=== PATIENT | male | born 1945 | race Hispanic/Latino ===

== ENCOUNTER 2018-06-26 02:50 | Observation (INO) | payer MEDICARE ==
[~2018-06-26] VITALS: Ht 167.6 cm; Wt 97.9 kg
[2018-06-26 03:28] LABS: BASOPHILS % (AUTO) 0.3 % (0.0-5.0); EOSINOPHILS % (AUTO) 1.9 % (0.0-8.0); HEMATOCRIT 37.4 % (42-54); LYMPHOCYTES % (AUTO) 37.2 % (21.0-51.0); MEAN CORPUSCULAR HEMOGLOBIN 31.8 pg (27.0-33.0); MEAN CORPUSCULAR HGB CONC 34.5 g/dL (32.0-36.0); MEAN CORPUSCULAR VOLUME 92.1 fL (79-99); MONOCYTES % (AUTO) 9.2 % (3.0-13.0); NEUTROPHILS % (AUTO) 51.4 % (40.0-77.0); NUCLEATED RED BLOOD CELLS 0.1 % (0.0-0.19); PLATELET COUNT (AUTO) 126 K/uL (130-400); RED BLOOD CELL COUNT(AUTO) 4.06 MIL/uL (4.50-6.20); RED CELL DISTRIBUTION WIDTH 13.1 % (11.0-15.5)
[2018-06-26 03:32] LABS: INR 1.08 (0.85-1.15); PARTIAL THROMBOPLASTIN TIME 29.6 SEC (26.3-35.5); PROTHROMBIN TIME 11.3 SEC (9.6-11.6)
[2018-06-26 03:43] LABS: ALBUMIN 3.3 g/dL (3.5-5.0); BILIRUBIN,TOTAL 0.4 mg/dL (0.2-1.0); CREATININE 0.7 mg/dL (0.5-1.5); POTASSIUM 3.5 mmol/L (3.5-5.1); TOTAL PROTEIN, SERUM 6.8 g/dL (6.0-8.3)
[2018-06-26 04:39] LABS: APPEARANCE,URINE Clear (CLEAR); BILIRUBIN,URINE Negative (NEGATIVE); COLOR,URINE Yellow (YELLOW); GLUCOSE, URINE (UA) Negative (NEGATIVE); KETONES,URINE Trace mg/dL (NEGATIVE); LEUKOCYTE ESTERASE ,URINE Negative (NEGATIVE); NITRATE,URINE Negative (NEGATIVE); OCCULT BLOOD,URINE Trace (NEGATIVE); PH,URINE 6.5 (5.0-8.0); PROTEIN,URINE Negative (NEGATIVE); UROBILINOGEN,URINE 0.2 mg/dL (0.2-1.0)
[2018-06-26 04:46] LABS: AMPHET/METH SCREEN,URINE NEGATIVE (NEGATIVE); BARBITURATE SCREEN, URINE NEGATIVE (NEGATIVE); BENZODIAZEPINES SCREEN,URINE NEGATIVE (NEGATIVE); CANNABINOID SCREEN,URINE NEGATIVE (NEGATIVE); COCAINE SCREEN,URINE NEGATIVE (NEGATIVE); OPIATE SCREEN,URINE NEGATIVE (NEGATIVE); PHENCYCLIDINE SCREEN,URINE NEGATIVE (NEGATIVE)
[2018-06-26 04:51] LABS: BACTERIA,URINE None Seen /HPF (None Seen); MUCUS,URINE Rare LPF (None Seen); RBC,URINE 0-1 /HPF (0-1); SQUAMOUS EPITHELIAL CELL,UR Few /HPF (0-2); WBC,URINE None Seen /HPF (0-1)
[2018-06-26 05:40] LABS: CREATININE 0.6 mg/dL (0.5-1.5); POTASSIUM 3.9 mmol/L (3.5-5.1)
[2018-06-26] MEDS ORDERED: NITROGLYCERIN 0.4 MG SL TAB SL PRN (05:45)
[2018-06-26] MEDS ORDERED: POTASSIUM CHLORIDE 20MEQ/100ML 100 ML IV PRN (05:45)
[2018-06-26] MEDS ORDERED: ONDANSETRON HCL 4 MG/2 ML VIAL IV PRN (05:45)
[2018-06-26] MEDS ORDERED: CHLORDIAZEPOXIDE HCL 25 MG CAP PO PRN ×4 (05:45)
[2018-06-26] MEDS ORDERED: DEXTROSE 50%-WATER 50 ML DISP.SYRIN IV PRN (05:45)
[2018-06-26] MEDS ORDERED: POTASSIUM CHLORIDE 20 MEQ ERTAB PO PRN (05:45)
[2018-06-26] MEDS ORDERED: POTASSIUM CHLORIDE 10% ELIXIR 20 MEQ/15 ML UDCUP PO PRN (05:45)
[2018-06-26] MEDS ORDERED: GLUCAGON 1MG KIT 1 MG ML IM PRN (05:45)
[2018-06-26] MEDS ORDERED: LIDOCAINE HCL-MPF 1% 2ML VIAL IVP PRN (05:45)
[2018-06-26] MEDS ORDERED: LORAZEPAM 2 MG/ML 1 ML VIAL IVP PRN ×4 (05:45)
[2018-06-26] MEDS ORDERED: ACETAMINOPHEN 325 MG TAB PO PRN ×2 (05:45)
[2018-06-26] MEDS ORDERED: MAGNESIUM 2GM PREMIX 50ML 50 ML IV PRN ×3 (05:45→08:15)
[2018-06-26] MEDS ORDERED: PROMETHAZINE HCL 25 MG TABLET PO PRN (05:45)
[2018-06-26] MEDS ORDERED: ACETAMINOPHEN EXTRA STRENGTH 500 MG TABLET PO PRN (05:45)
[2018-06-26 05:59] LABS: HEMOGLOBIN A1C 7.2 % (4.0-6.0)
[2018-06-26] MEDS: CHLORDIAZEPOXIDE HCL 25 MG CAP PO SCH ×3 (06:15→22:15)
[2018-06-26] MEDS ORDERED: TETANUS/DIPHTHERIA TOXOID [ADULT] 0.5 ML VIAL IM ONE (06:15)
[2018-06-26] MEDS: INSULIN HUMULIN R 100 UNIT/ML 3ML SQ SCH ×4 (07:30→21:00)
[2018-06-26 07:50] VITALS: BP 161/99
[2018-06-26] MEDS ORDERED: SODIUM CHLORIDE 0.9% 1000ML 1,000 ML IV SCH (08:15)
[2018-06-26] MEDS: LISINOPRIL 10 MG TABLET PO SCH ×2 (08:22→09:00)
[2018-06-26] MEDS: PANTOPRAZOLE SODIUM 40 MG TABLET.DR PO SCH (08:22)
[2018-06-26] MEDS: HYDROCHLOROTHIAZIDE 25 MG TABLET PO SCH ×2 (08:22→09:00)
[2018-06-26] MEDS: FAMOTIDINE 20MG TAB 20 MG TAB PO SCH ×2 (09:00→20:19)
[2018-06-26] MEDS ORDERED: M.V.I. IV [ADULT] 10 ML, FOLIC ACID 1 MG, THIAMINE HCL 100 MG in SODIUM CHLORIDE 0.9% 1... IV SCH (09:00)
[2018-06-26 09:15] VITALS: BP 152/75
[2018-06-26 11:31] LABS: MYOGLOBIN 159 ng/mL (10-92); TROPONIN I < 0.04 ng/mL (0.00-0.06)
[2018-06-26 11:32] LABS: CREATINE KINASE, TOTAL 757 U/L (21-232)
[2018-06-26] MEDS: SODIUM CHLORIDE 0.9% 1000ML 1,000 ML IV SCH ×3 (11:35→20:19)
[2018-06-26 11:45] VITALS: BP 141/81
[2018-06-26] MEDS ORDERED: ASPI-1181 PO (11:59)
[2018-06-26] MEDS ORDERED: GLIP5TAB11 PO (11:59)
[2018-06-26] MEDS ORDERED: CALC-691 PO (11:59)
[2018-06-26] MEDS ORDERED: ESCI10TA54 PO (11:59)
[2018-06-26] MEDS ORDERED: FURO40TA5 PO (11:59)
[2018-06-26] MEDS ORDERED: RAMI10CA69 PO (11:59)
[2018-06-26] MEDS ORDERED: METO50 PO (11:59)
[2018-06-26] MEDS ORDERED: ATOR20TA65 PO (11:59)
[2018-06-26] MEDS ORDERED: DIVA500T52 PO ×2 (11:59)
[2018-06-26] MEDS ORDERED: CINN500C PO (11:59)
[2018-06-26] MEDS ORDERED: MELA5TAB14 PO (11:59)
[2018-06-26] MEDS ORDERED: METF-446 PO (11:59)
[2018-06-26] MEDS ORDERED: TERA5CAP6 PO (11:59)
[2018-06-26] MEDS: ENOXAPARIN SODIUM 40 MG/0.4 ML SYRINGE SQ SCH (13:50)
[2018-06-26 16:00] VITALS: BP 144/70
--- NOTE | 2018-06-26 19:15 | NUR ---
ASSESSMENT ASSUMED CARE. AA&OX2 TO PERSON & PLACE. REORIENTED TO DATE & TIME. NO DISTRESS NOTED. UNLABORED RESPIRATIONS. IV BANANA BAG INFUSING WELL VIA PIV. HEAD OCCIPITAL AREA WITH LACERATION WITH SHANELL IN PLACE, EDGES WELL APPROXIMATED, DRAINS SCANT AMOUNT OF SEROUS SANGUINOUS DRAINAGE, OPEN TO AIR. DENIES PAIN AT THIS TIME. URINAL AT BEDSIDE WITHIN REACH. CALL LIGHT IN HAND. INSTRUCTED TO CALL FOR ASSISTANCE. INSTRUCTED ON FALL PREVENTION MEASURES. INSTRUCTED NOT TO GET UP OUT OF BED WITHOUT CALLING FOR HELP. VERBALIZED UNDERSTANDING.
[2018-06-26 19:26] VITALS: BP 158/86
[2018-06-26 20:20] LABS: MYOGLOBIN 89 ng/mL (10-92); TROPONIN I < 0.04 ng/mL (0.00-0.06)
[2018-06-26 20:23] LABS: CREATINE KINASE, TOTAL 616 U/L (21-232)
--- NOTE | 2018-06-27 | NUR ---
ASSESSMENT RESTING, EYES CLOSED, UNLABORED RESPIRATIONS. BED RAILS UP X3. SINUS RHYTHM HR 66. BLINDS OPEN, DOOR AJAR, BED ALARM ON, ROOM IN FRONT OF NURSE'S STATION FOR CLOSE OBSERVATION TO PREVENT FALLS D/T PATIENT WITH FORGETFULNESS.
[2018-06-27 00:53] VITALS: BP 163/79
[2018-06-27 03:00] VITALS: BP 158/93
--- NOTE | 2018-06-27 03:00 | NUR ---
TRANSFERRED TO ROOM 229 ALL BELONGINGS TAKEN WITH PATIENT. TELEPACK PLACED. REPORT GIVEN TO YESSICA JONES.
--- NOTE | 2018-06-27 03:05 | NUR ---
ASSESSMENT PATIENT IS AWAKE AND ALERT. ORIENTED X 2. NOT ORIENTED TO TIME. RESTING COMFORTABLY IN BED. NO NEEDS VOICED AT THIS TIME. CALL LIGHT WITHIN REACH. INSTRUCTED PATIENT TO CALL IF ASSISTANCE IS NEEDED.
[2018-06-27 04:28] LABS: BASOPHILS % (AUTO) 0.5 % (0.0-5.0); EOSINOPHILS % (AUTO) 2.4 % (0.0-8.0); HEMATOCRIT 38.8 % (42-54); LYMPHOCYTES % (AUTO) 45.3 % (21.0-51.0); MEAN CORPUSCULAR HEMOGLOBIN 31.7 pg (27.0-33.0); MEAN CORPUSCULAR VOLUME 93.3 fL (79-99); MONOCYTES % (AUTO) 10.2 % (3.0-13.0); NEUTROPHILS % (AUTO) 41.6 % (40.0-77.0); NUCLEATED RED BLOOD CELLS 0.1 % (0.0-0.19); PLATELET COUNT (AUTO) 132 K/uL (130-400); RED BLOOD CELL COUNT(AUTO) 4.16 MIL/uL (4.50-6.20); RED CELL DISTRIBUTION WIDTH 13.5 % (11.0-15.5); WHITE BLOOD COUNT (AUTO) 5.2 K/uL (4.8-10.8)
[2018-06-27 04:50] LABS: ALBUMIN 3.1 g/dL (3.5-5.0); BILIRUBIN,TOTAL 0.4 mg/dL (0.2-1.0); CREATININE 0.5 mg/dL (0.5-1.5); MAGNESIUM 2.1 mg/dL (1.80-2.40); POTASSIUM 4.3 mmol/L (3.5-5.1); TOTAL PROTEIN, SERUM 6.5 g/dL (6.0-8.3)
[2018-06-27] MEDS: SODIUM CHLORIDE 0.9% 1000ML 1,000 ML IV SCH (05:43)
[2018-06-27] MEDS: CHLORDIAZEPOXIDE HCL 25 MG CAP PO SCH (06:53)
[2018-06-27] MEDS: INSULIN HUMULIN R 100 UNIT/ML 3ML SQ SCH ×2 (07:30→11:30)
[2018-06-27 07:41] VITALS: BP 168/94
[2018-06-27] MEDS: LISINOPRIL 10 MG TABLET PO SCH (07:42)
[2018-06-27] MEDS: HYDROCHLOROTHIAZIDE 25 MG TABLET PO SCH (07:42)
[2018-06-27] MEDS: PANTOPRAZOLE SODIUM 40 MG TABLET.DR PO SCH (07:42)
[2018-06-27] MEDS: FAMOTIDINE 20MG TAB 20 MG TAB PO SCH (07:42)
[2018-06-27] MEDS: ENOXAPARIN SODIUM 40 MG/0.4 ML SYRINGE SQ SCH (07:43)
--- NOTE | 2018-06-27 08:00 | NUR ---
ASSESSMENT PT IS AAOX4 DENIES CP DENIES SOB DENIES NV. NO COMPLAINTS AT THIS TIME. AM MEDS GIVEN NO CHOKING NO GAGGING NOTED. RESTING IN BED, CALL LIGHT WITHIN REACH.
[2018-06-27 11:26] VITALS: BP 165/74
--- NOTE | 2018-06-27 12:25 | NUR ---
DC PLAN VISITED WITH PATIENT. PATIENT LIVES ALONE. INDEPENDENT ABLE TO PERFORM ADL'S. PATIENT HAS CANE. PROVIDER 5 HRS A DAY. NURSE 1 WEEK FROM [facility]. FEELS SAFE TO RETURN HOME. WORRIED ABOUT ETOH. SPOKE TO PATIENT NOT INTERESTED IN STOPPING SAYS THAT HE DOES NOT HAVE A PROBLEM THOUGHT THEY WOULD JUST STICH HIM UP AND SEND HIM HOME. LEFT PACKET WITH AA INFO SAID HE WOULD NOT NEED. LET KNOW. Addendum: 06/27/18 at 1227 by MARLEN MARIE RN CM Amended: Links added.
--- NOTE | 2018-06-27 12:30 | NUR ---
DISCHARGE INSTRUCTIONS GIVEN TO PATIENT. AGREE TO TAKE MEDS ORDERED AGREE TO FOLLOW UP WITH MD ORDERED, ALL QUESTIONS ANSWERED, PIV REMOVED CATH TIP INTACT. TELE PACK REMOVED. AWAITING RIDE. ALL BELONGINGS GATHERED. DOWN VIA WC WITH NURSE AIDE AND PROVIDER
== END 2018-06-27 13:28 | disposition home or self-care (01) ==
LOC: EDH 02:50 → INTOOBSV 05:37 → EDHIP 05:37 → 2CH 08:04 → 2AH 06-27 02:55
PROVIDERS: ADMIT Internal Medicine; ATTEND Internal Medicine
DX: S01.01XA Laceration without foreign body of scalp, initial encounter (principal); E87.2 Acidosis; E87.1 Hypo-osmolality and hyponatremia; E83.42 Hypomagnesemia; F10.129 Alcohol abuse with intoxication, unspecified; W19.XXXA Unspecified fall, initial encounter; Y93.89 Activity, other specified; Y92.89 Other specified places as the place of occurrence of the external cause; Y99.8 Other external cause status; Y90.5 Blood alcohol level of 100-119 mg/100 ml; Z79.01 Long term (current) use of anticoagulants; Z79.899 Other long term (current) drug therapy
CPT/HCPCS: 12001; 36415 ×2; 70450; 71045; 72125; 80053 ×2; 80305; 81001; 82550 ×5; 82948 ×5; 83036; 83605 ×2; 83690; 83735 ×2; 83874 ×2; 84100; 84484 ×4; 85025 ×2; 85610; 85730; 90471; 90714; 93005 ×3; 96365; 96366 ×2; 96367; 96372 ×2; 99284; G0378 ×32; G0480; J1650 ×2; J3475; J7030 ×3; 80048; J3411; J3490